=== PATIENT | male | born 1945 | race Hispanic/Latino ===

== ENCOUNTER 2018-05-20 18:31 | Observation (INO) | payer OTHER ==
[~2018-05-20] VITALS: Ht 182.9 cm; Wt 94.3 kg
[2018-05-20] MEDS ORDERED: ASPIRIN 81MG TAB.CHEW ONE (18:51)
[2018-05-20 18:53] LABS: BASOPHILS % (AUTO) 0.7 % (0.0-5.0); EOSINOPHILS % (AUTO) 2.8 % (0.0-8.0); HEMATOCRIT 48.2 % (42-54); MEAN CORPUSCULAR HEMOGLOBIN 30.5 pg (27.0-33.0); MEAN CORPUSCULAR HGB CONC 33.4 g/dL (32.0-36.0); MEAN CORPUSCULAR VOLUME 91.3 fL (79-99); MONOCYTES % (AUTO) 10.7 % (3.0-13.0); NEUTROPHILS % (AUTO) 48.8 % (40.0-77.0); PLATELET COUNT (AUTO) 167 K/uL (130-400); RED BLOOD CELL COUNT(AUTO) 5.28 MIL/uL (4.50-6.20); RED CELL DISTRIBUTION WIDTH 15.4 % (11.0-15.5); WHITE BLOOD COUNT (AUTO) 9.3 K/uL (4.8-10.8)
[2018-05-20 19:31] LABS: INR 0.98 (0.85-1.15); PROTHROMBIN TIME 10.3 SEC (9.6-11.6)
[2018-05-20 19:40] LABS: CREATININE 1.2 mg/dL (0.5-1.5); POTASSIUM 4.1 mmol/L (3.5-5.1)
[2018-05-20 19:44] LABS: ALBUMIN 3.7 g/dL (3.5-5.0); BILIRUBIN,TOTAL 0.6 mg/dL (0.2-1.0); TOTAL PROTEIN, SERUM 7.9 g/dL (6.0-8.3)
[2018-05-20] MEDS ORDERED: IOPAMIDOL-370 100 ML VIAL IV ONE (20:43)
[2018-05-21] MEDS ORDERED: GLUCAGON 1MG KIT 1 MG ML IM PRN (00:45)
[2018-05-21] MEDS ORDERED: DEXTROSE 50%-WATER 50 ML DISP.SYRIN IV PRN (00:45)
[2018-05-21] MEDS ORDERED: NITROGLYCERIN 0.4 MG SL TAB SL PRN (00:45)
[2018-05-21] MEDS ORDERED: ONDANSETRON HCL MDV 20ML 2 MG/ML VIAL IVP PRN (00:45)
[2018-05-21] MEDS ORDERED: MORPHINE SULFATE 2 MG/ML 1ML SYG IVP PRN (00:45)
[2018-05-21] MEDS ORDERED: ACETAMINOPHEN 325 MG TAB PO PRN (00:45)
[2018-05-21 01:05] VITALS: BP 121/68
[2018-05-21] MEDS ORDERED: METO-391 PO (01:34)
[2018-05-21] MEDS ORDERED: ASPI-555 PO (01:34)
[2018-05-21] MEDS ORDERED: METF750T2 PO (01:34)
[2018-05-21] MEDS ORDERED: PRAV40TA3 PO (01:34)
[2018-05-21] MEDS ORDERED: CIPR500S4 PO (01:34)
[2018-05-21] MEDS ORDERED: OXYB5SYR2 PO (01:34)
[2018-05-21] MEDS ORDERED: ISOS60TA4 PO (01:34)
[2018-05-21] MEDS ORDERED: NAPR-1023 PO (01:34)
[2018-05-21] MEDS ORDERED: LISI-617 PO (01:34)
[2018-05-21] MEDS ORDERED: GABA-531 PO (01:34)
[2018-05-21] MEDS ORDERED: INSLAN SQ (03:04)
[2018-05-21 03:57] LABS: HEMATOCRIT 42.1 % (42-54); MEAN CORPUSCULAR HEMOGLOBIN 31.3 pg (27.0-33.0); MEAN CORPUSCULAR HGB CONC 34.7 g/dL (32.0-36.0); MEAN CORPUSCULAR VOLUME 90.1 fL (79-99); NUCLEATED RED BLOOD CELLS 0.1 % (0.0-0.19); PLATELET COUNT (AUTO) 161 K/uL (130-400); RED BLOOD CELL COUNT(AUTO) 4.67 MIL/uL (4.50-6.20); RED CELL DISTRIBUTION WIDTH 15.2 % (11.0-15.5); WHITE BLOOD COUNT (AUTO) 6.9 K/uL (4.8-10.8)
[2018-05-21 04:06] VITALS: BP 119/64
[2018-05-21 04:21] LABS: ALANINE AMINOTRANSFERASE 36 U/L (12-78); ALBUMIN 3.5 g/dL (3.5-5.0); ASPARTATE AMINOTRANSFERASE 26 U/L (10-37); BILIRUBIN,TOTAL 0.7 mg/dL (0.2-1.0); CARBON DIOXIDE 29 mmol/L (21-32); CHLORIDE 105 mmol/L (101-111); CHOLESTEROL 118 mg/dL (<200); CREATINE KINASE MB 1.4 ng/mL (0.5-3.6); CREATINE KINASE, TOTAL 99 U/L (21-232); CREATININE 1.1 mg/dL (0.5-1.5); GLOMERULAR FILTR. RATE CALC 70 mL/min (>60); GLUCOSE,RANDOM 132 mg/dL (70-105); HDL CHOLESTEROL 42 mg/dL (29-71); LDL DIRECT 53 mg/dL (0-99); MYOGLOBIN 90 ng/mL (10-92); POTASSIUM 4.4 mmol/L (3.5-5.1); SODIUM SERUM 141 mmol/L (136-145); TOTAL PROTEIN, SERUM 7.4 g/dL (6.0-8.3); TRIGLYCERIDES 200 mg/dL (30-200); TROPONIN I < 0.04 ng/mL (0.00-0.06); UREA NITROGEN, BLOOD 21 mg/dL (7-18)
[2018-05-21 04:24] LABS: HEMOGLOBIN A1C 8.1 % (4.0-6.0)
[2018-05-21] MEDS: INSULIN R PO SS1 SQ SCH ×4 (06:52→21:26)
[2018-05-21 07:44] VITALS: BP 135/71
[2018-05-21] MEDS: FAMOTIDINE 20MG TAB 20 MG TAB PO SCH ×2 (08:42→19:49)
[2018-05-21] MEDS: ASPIRIN 325 MG TABLET PO SCH (08:42)
[2018-05-21] MEDS: ENOXAPARIN SODIUM 40 MG/0.4 ML SYRINGE SQ SCH (08:43)
[2018-05-21 09:43] LABS: CREATINE KINASE MB 1.4 ng/mL (0.5-3.6); CREATINE KINASE, TOTAL 100 U/L (21-232); MYOGLOBIN 90 ng/mL (10-92); TROPONIN I < 0.04 ng/mL (0.00-0.06)
[2018-05-21 11:00] VITALS: BP 139/73
[2018-05-21 16:00] VITALS: BP 136/76
[2018-05-21 19:37] VITALS: BP 135/77
[2018-05-22] VITALS: BP 135/74
[2018-05-22 04:26] VITALS: BP 142/64
[2018-05-22] MEDS: INSULIN R PO SS1 SQ SCH ×3 (06:51→17:41)
[2018-05-22 07:00] VITALS: BP 145/75
[2018-05-22] MEDS: FAMOTIDINE 20MG TAB 20 MG TAB PO SCH (08:41)
[2018-05-22] MEDS: ASPIRIN 325 MG TABLET PO SCH (08:41)
[2018-05-22] MEDS: ENOXAPARIN SODIUM 40 MG/0.4 ML SYRINGE SQ SCH (08:42)
[2018-05-22 11:00] VITALS: BP 156/71
[2018-05-22] MEDS ORDERED: METOPROLOL TARTRATE 25 MG TAB PO SCH (14:00)
[2018-05-22] MEDS ORDERED: LISINOPRIL 5 MG TABLET PO SCH (14:00)
[2018-05-22 16:00] VITALS: BP 143/73
[2018-05-23] MEDS ORDERED: LISINOPRIL 5 MG TABLET PO SCH (09:00)
[2018-05-23] MEDS ORDERED: METOPROLOL TARTRATE 25 MG TAB PO SCH (09:00)
== END 2018-05-22 20:00 | disposition home or self-care (01) ==
LOC: EDH 18:31 → 2AH 23:23
PROVIDERS: ADMIT Internal Medicine Nephrology; ATTEND Internal Medicine Nephrology
DX: R07.89 Other chest pain (principal); I25.10 Atherosclerotic heart disease of native coronary artery without angina pectoris; R79.1 Abnormal coagulation profile; I44.7 Left bundle-branch block, unspecified; E78.5 Hyperlipidemia, unspecified; I10 Essential (primary) hypertension; N40.0 Benign prostatic hyperplasia without lower urinary tract symptoms; E11.9 Type 2 diabetes mellitus without complications; Z82.49 Family history of ischemic heart disease and other diseases of the circulatory system; Z83.3 Family history of diabetes mellitus; Z87.891 Personal history of nicotine dependence; Z95.5 Presence of coronary angioplasty implant and graft; Z79.82 Long term (current) use of aspirin
CPT/HCPCS: 36415 ×2; 71045; 71275; 80053 ×2; 80061; 82550 ×2; 82553 ×2; 82948 ×7; 83036; 83874 ×2; 84484 ×4; 85025; 85027; 85378; 85610; 85730; 93005 ×4; 93306; 93970; 96372 ×2; 99285; G0378 ×45; J1650 ×2; J1815 ×5; Q9967